=== PATIENT | female | born 1935 | race Caucasian/White ===

== ENCOUNTER 2016-06-08 15:53 | Emergency (ER) | payer MEDICARE, OTHER ==
[2016-06-08 16:43] LABS: BASOPHIL 0.4 % (0-2); HCT 36.7 % (37.0-47.0); HGB 12.1 g/dl (12.5-16.0); LYMPHOCYTE 40.6 % (15-48); MCH 32.4 pg (25.0-31.0); MCV 98.1 fL (78.0-100.0); MONOCYTE 12.5 % (0-12); MPV 11.4 fL (6.0-9.5); NEUTROPHIL 39.5 % (41-80); PLT 190 K/uL (150-400); RBC 3.74 M/uL (4.20-5.40); RDW 14.2 % (11.5-14.0); WBC 8.5 K/uL (4.0-10.5)
[2016-06-08 16:51] LABS: BILIRUBIN NEGATIVE (NEGATIVE); BLOOD 1+ Ery/uL (NEGATIVE); CLARITY SLIGHTLY HAZY (CLEAR); COLOR YELLOW (YELLOW); GLUCOSE (U) NORMAL (NORMAL); KETONE (U) NEGATIVE (NEGATIVE); LEUKOCYTES 3+ Leu/uL (NEGATIVE); NITRITE NEGATIVE (NEGATIVE); PROTEIN NEGATIVE (NEGATIVE); UROBILINOGEN 0.2 mg/dL (0.2-1.0); pH 6.5 (5.0-9.0)
[2016-06-08 16:58] LABS: BACTERIA 1+; URINARY WBC TNTC
[2016-06-08 16:59] LABS: SQUAMOUS EPITHELIAL CELLS RARE
[2016-06-08 17:00] LABS: INR 0.96 (0.9-1.2); PROTHROMBIN TIME 12.4 SECONDS (11.7-14.0); PTT 26.8 SECONDS (23.2-31.4)
[2016-06-08 17:08] LABS: ALBUMIN 3.4 g/dL (3.4-4.8); BILIRUBIN - TOTAL 0.4 mg/dL (0.1-1.0); CREATININE 1.3 mg/dL (0.5-1.0); MAGNESIUM 1.75 mg/dL (1.40-2.10); POTASSIUM 3.8 mmol/L (3.5-5.1); TOTAL PROTEIN 6.4 g/dL (6.4-8.3)
[2016-06-08 17:11] LABS: MYOGLOBIN 57 ng/mL (26-65); TROPONIN T < 0.010 ng/mL
[2016-06-08 17:12] LABS: PRO-BNP 645 pg/mL (0-450)
== END 2016-06-08 21:53 | disposition home or self-care (01) ==
LOC: FER 15:53
PROVIDERS: Emergency Medicine
DX: E87.1 Hypo-osmolality and hyponatremia (principal); E86.0 Dehydration; J18.9 Pneumonia, unspecified organism; N39.0 Urinary tract infection, site not specified; R19.7 Diarrhea, unspecified; I25.10 Atherosclerotic heart disease of native coronary artery without angina pectoris; I11.0 Hypertensive heart disease with heart failure; I50.9 Heart failure, unspecified; I44.30 Unspecified atrioventricular block; E03.9 Hypothyroidism, unspecified; Z79.82 Long term (current) use of aspirin; Z79.899 Other long term (current) drug therapy
CPT/HCPCS: 36415; 71010; 80053; 81001; 82550; 82553; 83735; 83874; 83880; 84484; 85025; 85610; 85730; 93005; J0456